=== PATIENT | male | born 1960 | race Caucasian/White ===

== ENCOUNTER → 2016-11-25 | Day surgery (SDC) | payer OTHER ==
[~2016-11-25] VITALS: Ht 180.3 cm; Wt 90.7 kg
[~2016-11-25] MED LIST: GOOD SENSE ASPI81 M1 PO; LISINOPRIL10 M1 PO; METOPROLOL SUCC25 M2 PO; NKHM; TENORMIN50 MG PO
--- NOTE | ~2016-11-25 | O ---
[place], [place] OPERATIVE NOTE NAME: LAUREN RICE UNIT #: [id number] ROOM: DOCTOR: OVN REN MD BIRTHDATE: [birth year] DOS: GASTROENDOSCOPIC REPORT INDICATION: This 55-year-old patient who presented with rectal pain, undergoing investigation. ALLERGIES: No known medications. PAST MEDICAL HISTORY: Myocardial infarction, hypercholesterolemia, hypertension. PAST SURGICAL HISTORY: Bilateral inguinal hernia repair. SOCIAL HISTORY: Nonsmoker, rare alcohol consumer. FAMILY HISTORY: Noncontributory otherwise. PROCEDURE: Today's procedure part of investigation is colonoscopy. PREMEDICATION: Versed and Diprivan. SCOPE: Olympus forward-view colonoscope 10L video. REPORT: After putting the patient in the left lateral position and after application of lubricant to rectal pouch and digital examination, scope was introduced thereafter under direct visualization, advanced through the length of colon without difficulty. Base of the cecum explored, appendiceal orifice identified and ileocecal valve was defined. Scope was gradually withdrawn back to the rectal pouch so far. Mild diverticulosis throughout the colon has been experienced. GI reflexion of the scope reveals hypertrophic dentate line in rectum and admixed with some small hemorrhoids. At this stage, a photographic series obtained. The patient extubated, tolerated the procedure well. The patient externally reexamined. There was no fissure. There was no evidence of fistula formation. IMPRESSION: Hypertrophic dentate line, small hemorrhoids, diverticulosis of mild degree. PLAN AND DISCUSSION: High fiber diet. We are going to use hemorrhoid Preparation H suppositories 1 p.r.n., rectal distress supportive management otherwise. There was no evidence of carcinoma or ulceration or colitis in this patient. I thank you very much indeed for your kind referral. Photographic series obtained and attached to the chart for future reference and documentation. [place], [place] OPERATIVE NOTE NAME: LAUREN RICE UNIT #: [id number] ROOM: DOCTOR: VON REN MD BIRTHDATE: [birth year] VON REN MD CM:OPRECORD:OPERATIVE NOTE 1022 1325 VON REN MD 11/25/16 1325 interface
[2016-11-25 09:15] VITALS: BP 181/119
[2016-11-25 09:43] VITALS: BP 165/97
[2016-11-25 10:19] VITALS: BP 143/93
[2016-11-25 10:35] VITALS: BP 140/88
[2016-11-25 10:50] VITALS: BP 138/93
== END | disposition home or self-care (01) ==
LOC: SDC 11-19 09:30
DX: K57.30 Diverticulosis of large intestine without perforation or abscess without bleeding (principal); K64.8 Other hemorrhoids; K62.89 Other specified diseases of anus and rectum; I25.2 Old myocardial infarction; E78.00 Pure hypercholesterolemia, unspecified; I10 Essential (primary) hypertension; Z98.890 Other specified postprocedural states; Z91.018 Allergy to other foods; Z82.49 Family history of ischemic heart disease and other diseases of the circulatory system

== ENCOUNTER → 2016-11-25 | Outpatient (CLI) | payer OTHER | END | disposition home or self-care (01) | LOC: RESCLI 11:29 | DX: I25.2 Old myocardial infarction (principal); K62.89 Other specified diseases of anus and rectum; I10 Essential (primary) hypertension; R73.02 Impaired glucose tolerance (oral); J01.10 Acute frontal sinusitis, unspecified ==

== ENCOUNTER → 2017-03-03 | Outpatient (CLI) | payer OTHER | END | disposition home or self-care (01) | LOC: RAD 14:23 | DX: J32.9 Chronic sinusitis, unspecified (principal); R09.81 Nasal congestion ==

== ENCOUNTER 2018-11-24 16:47 | Emergency (ER) | payer OTHER ==
[~2018-11-24] VITALS: Ht 180.3 cm; Wt 89.8 kg
== END 2018-11-24 18:10 | disposition home or self-care (01) ==
LOC: ED 16:47
DX: S01.111A Laceration without foreign body of right eyelid and periocular area, initial encounter (principal); Z79.82 Long term (current) use of aspirin; Z91.018 Allergy to other foods; W22.8XXA Striking against or struck by other objects, initial encounter; Y93.89 Activity, other specified; Y92.89 Other specified places as the place of occurrence of the external cause; Y99.8 Other external cause status

== ENCOUNTER 2023-10-30 21:25 | Inpatient (IN) | payer OTHER ==
[~2023-10-30] VITALS: Ht 180.3 cm; Wt 95.3 kg
[2023-10-30 21:35] VITALS: BP 136/80
[2023-10-30] MEDS ORDERED: ATORVASTATIN CA40 M1 PO (21:35)
[2023-10-30] MEDS ORDERED: ZESTORETIC 20-1 EACH PO (21:35)
[2023-10-30] MEDS ORDERED: Ondansetron Hydrochloride 4 MG/2 ML VIAL IV ONE (21:50)
[2023-10-30] MEDS ORDERED: MORPHINE Sulfate 2 MG/ML SYR IV ONE (21:50)
[2023-10-30] MEDS ORDERED: SODIUM CHLORIDE 0.9% 1,000 ML IV ONE (21:50)
[2023-10-30] MEDS ORDERED: IOHEXOL 300 MG/ML 100 ML VIAL IV ONE (22:00)
[2023-10-30 22:08] LABS: BASO # 0.1 10*3/uL (0.0-0.1); BASO % 0.4 % (0.0-1.0); EOS # 0.2 10*3/uL (0.0-0.4); EOS % 1.7 % (1.0-4.0); HEMATOCRIT 46.2 % (42.0-52.0); LYMPH # 1.3 10*3/uL (1.3-4.4); LYMPH % 9.4 % (27.0-41.0); MEAN CELL VOLUME 95.7 fl (80.0-94.0); MEAN CORPUSCULAR HGB 31.7 pg (27.0-31.0); MEAN CORPUSCULAR HGB CONC 33.1 g/dl (33.0-37.0); MONO # 0.9 10*3/uL (0.1-1.0); MONO % 6.6 % (3.0-9.0); NEUT # 10.9 10*3/uL (2.3-7.9); NEUT % 81.5 % (47.0-73.0); PLATELET COUNT AUTOMATED 205 10*3/uL (130-400); RED BLOOD COUNT 4.83 10*6/uL (4.50-5.90); RED CELL DISTRI WIDTH 12.4 % (0-14.5); WHITE BLOOD COUNT 13.4 10*3/uL (4.8-10.8)
[2023-10-30 22:45] LABS: ALKALINE PHOSPHATASE 99 U/L (46-116); BUN 12 mg/dl (9-23); CHLORIDE 103 mmol/L (98-107); LIPASE 38 U/L (12-53); POTASSIUM 3.9 mmol/L (3.4-5.1); SGPT/ALT 34 U/L (5-49); TOTAL PROTEIN 7.3 gm/dL (6.0-8.0)
[2023-10-30 23:26] LABS: BILIRUBIN Negative (Negative); BLOOD Negative (Negative); CLARITY Clear (Clear); COLOR Yellow (Yellow); GLUCOSE Negative (Negative); KETONE Trace (Negative); LEUKO ESTERASE Negative (Negative); NITRITE Negative (Negative); PH 5.5 (4.5-8.0); SPECIFIC GRAVITY >= 1.030 (1.001-1.030); UROBILINOGEN 0.2 E.U./dl (0.0-1.0)
[2023-10-30 23:59] LABS: WBC 0-2 wbc/hpf (0-5)
[2023-10-31] MEDS ORDERED: MORPHINE Sulfate 2 MG/ML SYR IV ONE (01:10)
[2023-10-31] MEDS ORDERED: Piperacillin Sodium/Tazobact 50 ML IV ONE ×2 (01:10→01:53)
[2023-10-31] MEDS ORDERED: ACETAMINOPHEN 325 MG TAB PO PRN (02:30)
[2023-10-31] MEDS ORDERED: MORPHINE Sulfate 2 MG/ML SYR IV PRN (02:30)
[2023-10-31] MEDS ORDERED: Magnesium Hydroxide 30 ML UDC PO PRN (02:30)
[2023-10-31] MEDS ORDERED: Acetaminophen/Hydrocodone 5 MG/325 MG TABLET PO PRN (02:30)
[2023-10-31] MEDS ORDERED: Ondansetron Hydrochloride 4 MG/2 ML VIAL IV PRN (02:30)
[2023-10-31] MEDS ORDERED: SODIUM CHLORIDE 0.9% 1,000 ML IV ONE ×2 (02:35→02:40)
[2023-10-31 02:37] VITALS: BP 115/77
[2023-10-31 05:59] VITALS: BP 129/84
[2023-10-31 06:53] LABS: BASO # 0.1 10*3/uL (0.0-0.1); BASO % 0.6 % (0.0-1.0); EOS # 0.3 10*3/uL (0.0-0.4); EOS % 2.1 % (1.0-4.0); HEMATOCRIT 39.8 % (42.0-52.0); LYMPH # 1.7 10*3/uL (1.3-4.4); LYMPH % 14.8 % (27.0-41.0); MEAN CELL VOLUME 94.5 fl (80.0-94.0); MEAN CORPUSCULAR HGB 31.4 pg (27.0-31.0); MEAN CORPUSCULAR HGB CONC 33.2 g/dl (33.0-37.0); MEAN PLATELET VOLUME 9.3 fl (9.6-12.3); MONO % 8.9 % (3.0-9.0); NEUT # 8.5 10*3/uL (2.3-7.9); NEUT % 73.3 % (47.0-73.0); PLATELET COUNT AUTOMATED 182 10*3/uL (130-400); RED BLOOD COUNT 4.21 10*6/uL (4.50-5.90); RED CELL DISTRI WIDTH 12.6 % (0-14.5); WHITE BLOOD COUNT 11.7 10*3/uL (4.8-10.8)
[2023-10-31 07:01] LABS: ALKALINE PHOSPHATASE 86 U/L (46-116); BUN 10 mg/dl (9-23); CHLORIDE 106 mmol/L (98-107); POTASSIUM 4.1 mmol/L (3.4-5.1); SGPT/ALT 26 U/L (5-49)
[2023-10-31] MEDS ORDERED: Piperacillin Sodium/Tazobact 50 ML IV SCH (08:00)
[2023-10-31 08:06] VITALS: BP 132/81
[2023-10-31] MEDS ORDERED: LISINOPRIL 20 MG TAB PO SCH (10:00)
[2023-10-31] MEDS ORDERED: Enoxaparin Sodium 40 MG/0.4 ML SYR SC SCH (10:00)
[2023-10-31] MEDS ORDERED: ASPIRIN, CHEWABLE 81 MG TAB PO SCH (10:00)
[2023-10-31 12:00] VITALS: BP 118/79
[2023-10-31 16:00] VITALS: BP 125/73
[2023-10-31] MEDS ORDERED: ATORVASTATIN CALCIUM 40 MG TABLET PO SCH (18:00)
[2023-10-31 20:00] VITALS: BP 121/80
[2023-11-01] VITALS: BP 124/73
[2023-11-01 06:44] LABS: BASO # 0.1 10*3/uL (0.0-0.1); BASO % 0.7 % (0.0-1.0); EOS # 0.3 10*3/uL (0.0-0.4); EOS % 3.6 % (1.0-4.0); HEMATOCRIT 40.3 % (42.0-52.0); LYMPH # 1.8 10*3/uL (1.3-4.4); LYMPH % 22.2 % (27.0-41.0); MEAN CORPUSCULAR HGB 31.8 pg (27.0-31.0); MEAN CORPUSCULAR HGB CONC 33.5 g/dl (33.0-37.0); MEAN PLATELET VOLUME 9.3 fl (9.6-12.3); MONO # 0.8 10*3/uL (0.1-1.0); MONO % 9.2 % (3.0-9.0); NEUT # 5.3 10*3/uL (2.3-7.9); NEUT % 64.1 % (47.0-73.0); PLATELET COUNT AUTOMATED 176 10*3/uL (130-400); RED BLOOD COUNT 4.24 10*6/uL (4.50-5.90); RED CELL DISTRI WIDTH 12.8 % (0-14.5); WHITE BLOOD COUNT 8.3 10*3/uL (4.8-10.8)
[2023-11-01 07:16] LABS: ALKALINE PHOSPHATASE 68 U/L (46-116); BUN 7 mg/dl (9-23); CHLORIDE 106 mmol/L (98-107); POTASSIUM 4.1 mmol/L (3.4-5.1); SGPT/ALT 21 U/L (5-49); TOTAL PROTEIN 6.1 gm/dL (6.0-8.0)
[2023-11-01 08:00] VITALS: BP 124/82
[2023-11-01] MEDS ORDERED: METRONIDAZOLE500 M1 PO (13:03)
[2023-11-01] MEDS ORDERED: CIPRO500 MG PO (13:03)
== END 2023-11-01 13:49 | disposition home or self-care (01) | DRG 392 ==
LOC: ED 21:25 → EDHOLD 10-31 01:27
PROVIDERS: Internal Medicine; Student in an Organized Health Care Education/Training Program; ADMIT Student in an Organized Health Care Education/Training Program; ATTEND Student in an Organized Health Care Education/Training Program
DX: K57.32 Diverticulitis of large intestine without perforation or abscess without bleeding (principal); D72.825 Bandemia; I10 Essential (primary) hypertension; R73.9 Hyperglycemia, unspecified; Z82.49 Family history of ischemic heart disease and other diseases of the circulatory system; Z98.890 Other specified postprocedural states; Z91.018 Allergy to other foods; Z78.9 Other specified health status; Z80.6 Family history of leukemia